=== PATIENT | female | born 1965 | race Caucasian/White ===

== ENCOUNTER 2018-01-04 18:30 | Outpatient (RCR) | payer OTHER, SELFPAY ==
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
--- NOTE | 2018-02-13 10:42 | HP.PTDCNRP_ITS ---
HP - Discharge Summary (1) - Patient Information IMRA GONZALES was seen in my office for initial evaluation on 12/23/17. The following Plan of Care was established for this patient: Initial Frequency: 3x /Week Initial Duration: 4 Weeks - Anticipated Interventions Patient/Client Instruction: Educate patient on: Benefits of Fitness Program For the Purpose of:: To improve performance and independence with ADL's Therapeutic Exercise to Include: Strength training, Endurance training, Body mechanics, Postural training, Passive ROM, Active ROM, Scapular Strength/ Stabilization For the Purpose of:: To improve muscle performance and motor function TENS: Yes Cryotherapy (ice pack, ice massage): Yes Thermo therapy (hot pack): Yes Ultrasound (thermal/non thermal): Yes For the Purpose of:: To decrease pain This patient was last seen in our office . Pertinent comments regarding their Physical therapy will appear below: Patient has not attended therapy in 4 weeks and is appropriate for d/c at this time. At this point I will be discontinuing this patient from physical therapy. I would be happy to see this patient again in the future if found appropriate by the physician. Thank you! Belem Hollins
== END 2018-01-04 19:00 | disposition home or self-care (01) ==
LOC: PT 18:30
PROVIDERS: Family Provider Preventive Medicine Occupational Medicine; PCP Preventive Medicine Occupational Medicine; Visit Provider Orthopaedic Surgery
DX: M75.42 Impingement syndrome of left shoulder (principal); M75.52 Bursitis of left shoulder; S46.012D Strain of muscle(s) and tendon(s) of the rotator cuff of left shoulder, subsequent encounter
CPT/HCPCS: 97014; 97035; 97110; 97162; G0283

== ENCOUNTER 2018-04-20 11:30 | Outpatient (RCR) | payer OTHER, SELFPAY ==
--- NOTE | 2018-03-01 12:55 | HP.PTEVAL_ITS ---
Patient's Visit Information IRMA GONZALES is a 53 year old F referred to Physical Therapy by Mega Walsh with a diagnosis of R shoulder and elbow pain. Date of Evaluation: 03/01/18 Physical Therapist: Nemesio Mitchell, PT, - Visit Plan Frequency: 3x /Week Duration: 6 Weeks Plan: R shoulder strengthening and stretching, R elbow strengthening, scap stab ex's, UBE, and HEP - Subjective Subjective: Pt reports she slipped on ice while walking into work on 11/30/17. Pt reports she has had R shoulder and elbow pain since. Pt notes she has had xrays, an MRI, and EKG to rule out pathology. PT was diagnosed with a contused R elbow and a torn rot cuff. Pt notes she has been told she needs to have surgery. Pt reports she was in a sling everyday for protection, but was told she needed to wean out of it. Pt notes occasional sleep diff secondary to pain. Pt also notes sleep diff at this time. 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 B bicepital reflex= 2/3. ROM: L shoulder flex= 150, abd= 135, ER= 60, IR WNL; R shoulder flex= 85, abd= 35, ER= 55, IR is severely limited. MMT: L shoulder is 5/5 throughout. R shoulder 2-/5 and painful with all testing. Special test: Pos empty can test indicating supraspinatus pathology. - Goals Goal 1:: Decrease R shoulder and elbow pain x 50% to aid with sleep Goal Time Frame: 4-6 Weeks Goal 2:: Increase R shoulder strength x 1 grade to aid with RTW without limitation Goal Time Frame: 4-6 Weeks Goal 3:: Increase R shoulder flex and abd ROM x 40 degrees to aid with overhead activity Goal Time Frame: 4-6 Weeks Goal 4:: I with HEP Goal Time Frame: 4-6 Weeks - Rehabilitation Potential Physical Therapy Diagnosis: R shoulder pain, weakness, and limited ROM secondary to R rot cuff tear Rehabilitation Potential: Good - Anticipated Interventions Patient/Client Instruction: Educate patient on: Condition, Plan of Care For the Purpose of:: To improve self management Therapeutic Exercise to Include: Strength training, Endurance training, Postural training, Flexibilty training, Active ROM, Scapular Strength/ Stabilization For the Purpose of:: To decrease pain, To increase ROM, To improve muscle performance and motor function Cryotherapy (ice pack, ice massage): Yes For the Purpose of:: To decrease pain Thank you for the opportunity to evaluate your patient. For Medicare and Medicare HMO plans, please review the plan of care and approve it. It will need to be FAXED BACK to us at [phone] for Medicare purposes. Please let me know if there are questions or concerns regarding this plan of care. Physician Signature: Date:
--- NOTE | 2018-04-05 09:24 | HP.PTREVAL_ITS ---
Mega Walsh, It has been my pleasure to treat IRMA GONZALES over the last 14 visits for R shoulder and elbow pain. Please see the progress note below for an update on the physical therapy plan of care! Subjective: Pt reports she is just about as good as it gets. Very little improvement. Pt to see today Objective/Function: R shoulder ROM: flex= 78, abd= 40, ER= 25, IR= minimally limited. R shoulder MMT: 3-/5 throughout. Pain ranges from 6-8/10. Pt is showing very minimal progress Plan Plan: Cont with POC pending visit today Goals Goal 1:: Decrease R shoulder and elbow pain x 50% to aid with sleep Goal Time Frame: 4-6 Weeks Goal 2:: Increase R shoulder strength x 1 grade to aid with RTW without limitation Goal Time Frame: 4-6 Weeks Goal 3:: Increase R shoulder flex and abd ROM x 40 degrees to aid with overhead activity Goal Time Frame: 4-6 Weeks Goal 4:: I with HEP Goal Time Frame: 4-6 Weeks Anticipated Interventions Patient/Client Instruction: Educate patient on: Condition, Plan of Care For the Purpose of:: To improve self management Therapeutic Exercise to Include: Strength training, Endurance training, Postural training, Flexibilty training, Active ROM, Scapular Strength/ Stabilization For the Purpose of:: To decrease pain, To increase ROM, To improve muscle performance and motor function Cryotherapy (ice pack, ice massage): Yes For the Purpose of:: To decrease pain Please do not hesitate to contact me at [phone] by phone or Fax: if you have questions or concerns regarding this new plan of care! Sincerely, Nemesio Mitchell, PT,
--- NOTE | 2018-04-20 12:14 | HP.PTDCSUM_ITS ---
HP - PT D/C Summary It has been my pleasure to treat IRMA GONZALES under orders from Mega Walsh , for the diagnosis of R shoulder and elbow pain for a total of 16 visit(s). Discharge Date: Please see the following information for a summary of their discharge status. - Subjective Subjective: Pt reports her R shoulder and elbow are still sore. Elbow pain is 5/ 10. Pt notes this is her last visit today. Pt reports she is maybe 20% better at this time. Still cant drive with her R UE - Pain R shoulder Pain Intensity (Out of 10): 6 - Overall Improvement % Improvement: 20 - Objective Objective/Function: Pt is still having sleep difficulty secondary to pain which ranges from 5-7/10. R shoulder MMT: 3-/5 throughout and painful with all testing. R shoulder ROM: flex= 82 degrees, abd= 55 degrees. Pt is working hard to increase strength and ROM, but no significant improvements up to this point. - Goals Goal 1:: Decrease R shoulder and elbow pain x 50% to aid with sleep Goal Progress: Not Progressing Goal 2:: Increase R shoulder strength x 1 grade to aid with RTW without limitation Goal Progress: Progressing Goal 3:: Increase R shoulder flex and abd ROM x 40 degrees to aid with overhead activity Goal Progress: Not Progressing Goal 4:: I with HEP Goal Progress: Goal Met - Plan Plan: Discontinue secondary to lack of improvements, RTD - D/C Information If there are questions or concerns regarding this patient's physical therapy, please feel free to call me at [phone]. Thank you for the referral of this patient. Sincerely, Nemesio Mitchell, PT,
== END 2018-04-20 19:00 | disposition home or self-care (01) ==
LOC: PT 11:30
PROVIDERS: Family Provider Preventive Medicine Occupational Medicine; PCP Preventive Medicine Occupational Medicine; Visit Provider Orthopaedic Surgery
DX: S40.011D Contusion of right shoulder, subsequent encounter (principal); S50.01XD Contusion of right elbow, subsequent encounter
CPT/HCPCS: 97035; 97110; 97162; 97530

== ENCOUNTER 2019-02-08 10:00 | Outpatient (RCR) | payer OTHER, SELFPAY ==
--- NOTE | 2018-09-20 15:26 | HP.PTEVAL ---
Patient's Visit Information IRMA GONZALES is a 53 year old F referred to Physical Therapy by TIM CRUZ with a diagnosis of R rot cuff repair. Date of Evaluation: 09/20/18 Physical Therapist: Nemesio Mitchell PT, - Visit Plan Frequency: 2-3x /Week Duration: 6 Weeks Plan: Follow protocal. CP for pain - Subjective Subjective: DOS: 08/30/18. Pt rports she fell at work about 10 months ago which resulted in a tear of her R rot cuff. Pt reports she had to wait for about 10 months to have her surgery due to the rhoades she had with workers comp. Pt reports she is R hand dom. Pt reports she is still really sore at this time. Pt has not been taking any pain meds. Sleep difficulty at this time as pt is still sleeping in a recliner. Pt reports she is not currently employed as her employer fired her at this time. 5/10 pain at rest, 10/10 when she gets stabbing pain. - Pain R shoulder Pain Intensity (Out of 10): 5 Pain Intensity Range: 10 - Objective Neuro: B UE sensation is WNL to light touch. B bicepital reflex= 2/3. Observation: Incisions healed, no signs of infection. ROM: R shoulder flex= 80, abd= 80 degrees. L shoulder is WFL. MMT: shoulder not tested. L shoulder 5/5 throughout - Goals Goal 1:: Decrease R shoulder pain x 50% to aid with sleep Goal Time Frame: 6-8 Weeks Goal 2:: Increase R shoulder ROM x 40 degrees to aid with overhead activity Goal Time Frame: 6-8 Weeks Goal 3:: Increase R shoulder strength x 1 grade to aid with IADL's Goal Time Frame: 6-8 Weeks Goal 4:: I with HEP Goal Time Frame: 6-8 Weeks - Rehabilitation Potential Physical Therapy Diagnosis: R shoulder pain, weakness, and limited ROM secondary to R rot cuff repair Rehabilitation Potential: Good - Anticipated Interventions Patient/Client Instruction: Educate patient on: Condition, Plan of Care For the Purpose of:: To improve self management Therapeutic Exercise to Include: Strength training, Endurance training, Postural training, Passive ROM, Active ROM, Scapular Strength/Stabilization For the Purpose of:: To decrease pain, To increase ROM, To improve muscle performance and motor function Cryotherapy (ice pack, ice massage): Yes For the Purpose of:: To decrease pain Thank you for the opportunity to evaluate your patient. For Medicare and Medicare HMO plans, please review the plan of care and approve it. It will need to be FAXED BACK to us at [phone] for Medicare purposes. Please let me know if there are questions or concerns regarding this plan of care. Physician Signature: Date:
--- NOTE | 2018-10-11 10:59 | HP.PTREVAL ---
TIM CRUZ, It has been my pleasure to treat IRMA GONZALES over the last 10 visits for R rot cuff repair. Please see the progress note below for an update on the physical therapy plan of care! Subjective: Pt reports she is really sore this date Objective/Function: R shoulder pain 5/10, increases to 8/10 at worst. R shoulder AROM: flex= 90, abd= 65, ER= 20, IR moderately limited. MMT: not tested this date. Pt is progressing well at this time toward Rx goals Plan Plan: Follow protocal. HP for pain (per pt request). *Update HEP next session with cane ex's in supine* Goals Goal 1:: Decrease R shoulder pain x 50% to aid with sleep Goal Time Frame: 6-8 Weeks Goal 2:: Increase R shoulder ROM x 40 degrees to aid with overhead activity Goal Time Frame: 6-8 Weeks Goal 3:: Increase R shoulder strength x 1 grade to aid with IADL's Goal Time Frame: 6-8 Weeks Goal 4:: I with HEP Goal Time Frame: 6-8 Weeks Anticipated Interventions Patient/Client Instruction: Educate patient on: Condition, Plan of Care For the Purpose of:: To improve self management Therapeutic Exercise to Include: Strength training, Endurance training, Postural training, Passive ROM, Active ROM, Scapular Strength/Stabilization For the Purpose of:: To decrease pain, To increase ROM, To improve muscle performance and motor function Cryotherapy (ice pack, ice massage): Yes For the Purpose of:: To decrease pain Please do not hesitate to contact me at [phone] by phone or if you have questions or concerns regarding this new plan of care! Sincerely, Nemesio Mitchell, PT,
--- NOTE | 2018-11-01 10:34 | HP.PTREVAL ---
TIM CRUZ, It has been my pleasure to treat IRMA GONZALES over the last 18 visits for R rot cuff repair. Please see the progress note below for an update on the physical therapy plan of care! Subjective: Pt reports she is sore today, no specific reason why Objective/Function: R shoulder pain ranges from 5/10 to 8/10. R shoulder AROM: flex= 110, abd= 90, ER= 30, and IR is minimally limited. R shoulder strength is rated at 3-/5 as she can not lift her R UE in full ROM over head Plan Plan: Attempt to get 12 more PT visits approved as skilled PT is still necessary for strength and ROM of the R shoulder Goals Goal 1:: Decrease R shoulder pain x 50% to aid with sleep Goal Time Frame: 6-8 Weeks Goal 2:: Increase R shoulder ROM x 40 degrees to aid with overhead activity Goal Time Frame: 6-8 Weeks Goal 3:: Increase R shoulder strength x 1 grade to aid with IADL's Goal Time Frame: 6-8 Weeks Goal 4:: I with HEP Goal Time Frame: 6-8 Weeks Anticipated Interventions Patient/Client Instruction: Educate patient on: Condition, Plan of Care For the Purpose of:: To improve self management Therapeutic Exercise to Include: Strength training, Endurance training, Postural training, Passive ROM, Active ROM, Scapular Strength/Stabilization For the Purpose of:: To decrease pain, To increase ROM, To improve muscle performance and motor function Cryotherapy (ice pack, ice massage): Yes For the Purpose of:: To decrease pain Please do not hesitate to contact me at [phone] by phone or if you have questions or concerns regarding this new plan of care! Sincerely, Nemesio Mitchell, PT, ATC
--- NOTE | 2019-02-08 10:56 | HP.PTREVAL ---
TIM CRUZ, It has been my pleasure to treat IRMA GONZALES over the last 36 visits for R rot cuff repair and elbow contusion. Please see the progress note below for an update on the physical therapy plan of care! Subjective: Pt is really sore today. Believes it may be due to the weather Objective/Function: R shoulder ROM: flex= 105, abd= 95, ER= 40, IR min limited. R elbow ROM: 0-95 degrees. R shoulder MMT: 4-/5 in available ROM. R elbow MMT: 4/5 with flex and ext Plan Plan: Hold chart open until after Dr. ma Goals Goal 1:: Decrease R shoulder pain x 50% to aid with sleep Goal Time Frame: 6-8 Weeks Goal Progress: Not Progressing Goal 2:: Increase R shoulder ROM x 40 degrees to aid with overhead activity Goal Time Frame: 6-8 Weeks Goal 3:: Increase R shoulder strength x 1 grade to aid with IADL's Goal Time Frame: 6-8 Weeks Goal 4:: I with HEP Goal Time Frame: 6-8 Weeks Anticipated Interventions Patient/Client Instruction: Educate patient on: Condition, Plan of Care For the Purpose of:: To improve self management Therapeutic Exercise to Include: Strength training, Endurance training, Postural training, Passive ROM, Active ROM, Scapular Strength/Stabilization For the Purpose of:: To decrease pain, To increase ROM, To improve muscle performance and motor function Cryotherapy (ice pack, ice massage): Yes For the Purpose of:: To decrease pain Please do not hesitate to contact me at [phone] by phone or if you have questions or concerns regarding this new plan of care! Sincerely, Nemesio Mitchell, PT, ATC
--- NOTE | 2019-03-23 15:29 | HP.PT.NRP ---
HP - Discharge Summary (1) - Patient Information IRMA GONZALES was seen in my office for initial evaluation on 09/20/18. The following Plan of Care was established for this patient: Initial Frequency: 2-3x /Week Initial Duration: 6 Weeks - Anticipated Interventions Patient/Client Instruction: Educate patient on: Condition, Plan of Care For the Purpose of:: To improve self management Therapeutic Exercise to Include: Strength training, Endurance training, Postural training, Passive ROM, Active ROM, Scapular Strength/Stabilization For the Purpose of:: To decrease pain, To increase ROM, To improve muscle performance and motor function Cryotherapy (ice pack, ice massage): Yes For the Purpose of:: To decrease pain This patient was last seen in our office . Pertinent comments regarding their Physical therapy will appear below: Pt was last treated for her R shoulder and elbow pain on the date of 02/08/19. Pt has not returned since that date, and is therefore discontinued at this time. At this point I will be discontinuing this patient from physical therapy. I would be happy to see this patient again in the future if found appropriate by the physician. Thank you! Nemesio Mitchell, PT, ATC
== END 2019-02-08 19:00 | disposition home or self-care (01) ==
LOC: PT 10:00
PROVIDERS: Family Provider Family Medicine; PCP Family Medicine
DX: Z98.890 Other specified postprocedural states (principal)
CPT/HCPCS: 97035; 97110; 97140; 97162; 97530

== ENCOUNTER 2019-06-26 08:30 | Outpatient (RCR) | payer OTHER, SELFPAY ==
--- NOTE | 2019-05-29 14:59 | HP.OTEVAL ---
Patient's Visit Information IRMA GONZALES is a 54 year old F, referred to Occupational Therapy by Chris Shepard MD, with a diagnosis of R CTS. Date of Evaluation: 05/29/19 Occupational Therapist: Anum Giron, OTR/L - Subjective Subjective: Arrived and noted is s/p R CTS release 05/08/19. Noted she no longer works due to injury. 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 She noted fell at work in parking lot on ice. She noted she landed on elbow. Last day of work was January 2018. - ADLs Dressing: Bra, Button shirt, Pants, Socks, Shoes, Earrings Fasteners: Tie shoes, Buttons, Zippers Eating: Cut food, Drink from glass Bathing: Handle washcloth & soap, Squeeze shampoo bottle Toileting: Manage clothing Grooming: stretcher leveler operator helper, Comb hair Kitchen: Chop with knife, Peel fruits & vegetables, Open jars, Open bottle caps, Lift gallon of milk, Pour from pitcher, Lift saucepan, Take dish out of oven, Load/unload observer gravity prospecting, Place dish in microwave Household: Vacuum, Sweep/mop, Laundry Yard: [place], [place], Use shovel, Use pruners Comments: gardening. Miscellaneous: Use cell phone, Start car, Open medication bottle, Handle money (change), Take things out of wallet, Carry shopping bag, Write, Use computer keyboard, Operate aerosol cans, Pump gas, Drive Comments: Increased pain in R wrista nd hand s/p CTS release. - Pain Right Wrist 4 Pain Intensity Range: 4, 7 - ROM Wrist: flexion R 0-44, L WFL ; extension R 0-15, L WFL MP: WFL PIP: WFL DIP: WFL ROM Comments: Able to make full composite fist. - Strength Conductor Orchestra: flexed R 6, L 53 lbs; extended R 9, L 50 Lateral Pinch: R 9, L 50 Tripod Pinch: R 6, L 15 Tip-to-Tip Pinch: R 5, L 12 Strength Comments: Increased pain with resistance for strength testing. - Edema Other: mild edema noted at volar carpal scar. - Sensation Thumb: R 2.83 ,L 2.44 Index: R 3.22, ,L 2.44 Middle: R 3.22, ,L 2.44 Ring: R 3.22, ,L 2.44 Little: R 3.22, ,L 2.44 Sensation Comments: notes increased numbness and tingling of R shoulder and elbow as well as hand. - Nine Hole Peg Right: 43.88 s Left: 22.18 s - In-Hand Manipulation Finger to Palm Translation: Mild - Right, Normal - Left Palm to Finger Translation: Mild - Right, Normal - Left Shift: Mild - Right, Moderate - Right, Normal - Left Rotation: Normal - Right, Mild - Right, Normal - Left - Quick DASH-Disab of Arm,Shoulder& Hand Quick DASH Score: 70.4525 - Carpal Tunnel Syndrome Total Score of Symptom & Functional Sections: 36 - Rehabilitation General Assessment: Arrived Rehabilitation Potential: Good - Anticipated Interventions Anticipated Interventions: Early Active Motion, A/AAROM/PROM, Strengthening, Edema Control, Desensitization, Modalities, Orthoses, Joint Protection/Energy Conservation, Ergonomic Education, Dynamic Sitting Balance, Fine Motor Coord/Homar, ADL Training, Caregiver Training, Home Program - Visit Plan Frequency: 2x /Week Duration: 4 Weeks TEXT: Thank you for the opportunity to evaluate your patient. For Medicare and Medicare HMO plans, please review the plan of care and approve it. It will need to be FAXED BACK to us at [phone] for Medicare purposes. Please let me know if there are questions or concerns regarding this plan of care. Physician Signature: Date:
--- NOTE | 2019-05-30 18:48 | HP.OTEVAL ---
Patient's Visit Information IRMA GONZALES is a 54 year old F, referred to Occupational Therapy by Chris Shepard MD, with a diagnosis of R CTS. Date of Evaluation: 05/29/19 Occupational Therapist: Anum Giron, OTR/L - Subjective Subjective: Arrived and noted is s/p R CTS release 05/08/19. Noted she no longer works due to injury. 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 She noted fell at work in parking lot on ice. She noted she landed on RUE with increased pain generalizing at R elbow and shoulder. Last day of work was January 2018. Recent R CTS release beginning of May. - ADLs Dressing: Bra, Button shirt, Pants, Socks, Shoes, Earrings Fasteners: Tie shoes, Buttons, Zippers Eating: Cut food, Drink from glass Bathing: Handle washcloth & soap, Squeeze shampoo bottle Toileting: Manage clothing Grooming: account adjuster, Comb hair Kitchen: Chop with knife, Peel fruits & vegetables, Open jars, Open bottle caps, Lift gallon of milk, Pour from pitcher, Lift saucepan, Take dish out of oven, Load/unload discharging machine operator, Place dish in microwave Household: Vacuum, Sweep/mop, Laundry Yard: [place], [place], Use shovel, Use pruners Comments: gardening. Miscellaneous: Use cell phone, Start car, Open medication bottle, Handle money (change), Take things out of wallet, Carry shopping bag, Write, Use computer keyboard, Operate aerosol cans, Pump gas, Drive Comments: Increased pain in R wrista nd hand s/p CTS release. - Pain Right Wrist 4 Pain Intensity Range: 4, 7 - Objective Objective/Observation: Volar carpal scar closed and healed. Mild edema over scar. General tenderness with palpation t/o UE. - ROM Wrist: flexion R 0-44, L WFL ; extension R 0-15, L WFL MP: WFL PIP: WFL DIP: WFL ROM Comments: Able to make full composite fist. - Strength Pharmacist In Charge Owner: flexed R 6, L 53 lbs; extended R 9, L 50 Lateral Pinch: R 9, L 50 Tripod Pinch: R 6, L 15 Tip-to-Tip Pinch: R 5, L 12 Strength Comments: Increased pain with resistance for strength testing. - Edema Other: mild edema noted at volar carpal scar. - Sensation Thumb: R 2.83 ,L 2.44 Index: R 3.22, ,L 2.44 Middle: R 3.22, ,L 2.44 Ring: R 3.22, ,L 2.44 Little: R 3.22, ,L 2.44 Sensation Comments: notes increased numbness and tingling of R shoulder and elbow as well as hand. - Nine Hole Peg Right: 43.88 s Left: 22.18 s - In-Hand Manipulation Finger to Palm Translation: Mild - Right, Normal - Left Palm to Finger Translation: Mild - Right, Normal - Left Shift: Mild - Right, Moderate - Right, Normal - Left Rotation: Normal - Right, Mild - Right, Normal - Left - Quick DASH-Disab of Arm,Shoulder& Hand Quick DASH Score: 70.4525 - Carpal Tunnel Syndrome Total Score of Symptom & Functional Sections: 36 - Goals Goal:: Irma to increased R datastage consultant strengthto 60% of L datastage consultant to promote increased ability to manipulate self-care and daily objects needed to return to PLOF by d/c. Goal:: Irma to increased R wrist ROM to that simlar of L hand to promote increased ROM and strength needed to return to PLOF by d/c. Goal:: Irma to have no more than 1-2/10 pain with repetitive movements 4/5 trials 80% of the time to promote reutnring to PLOF and potentially return to work by d/c. Goal:: Irma to complete daily scar massage to promote desensitizatrion of scar and area 4/5 trials 80% of the time to promote healing by d/c. Goal:: Karle to be (I) to complete appropriate ergonomics of R UE with lifiting and desk work to promote pain management and decreased risk of increase of pain or further injury 4/5 trials 80% of the time by d/c. Goal:: Irma to be (I) to return to PLOF with full use of RUE for all ADL/IADls 4/ 5trials 80% of the time to promote QOL by d/c. Goal:: Irma to be (I) to complete daily HEP to promote strength. ROM, and fx use of R hand and UE 4/ 5trials 80% of the time to by d/c. - Rehabilitation General Assessment: Arrived on this date of 05/29/19 for OT evaluation. rIma has had ongoing issue of RUE pain and discomfort for last year and half. She noted pain starting from shoulder and going to hand with recent R CTS release beginning of May. S/p R CTS release [place] exhibits decreased ROM, strength, and ability to use R hand at PLOF for ADL/IADls. Skilled OT warranted to promote returning to PLOF and increased ROM, strength, and ability to use R hand for ADL/IADLs. Rehabilitation Potential: Good - Anticipated Interventions Anticipated Interventions: Early Active Motion, A/AAROM/PROM, Strengthening, Edema Control, Desensitization, Modalities, Orthoses, Joint Protection/Energy Conservation, Ergonomic Education, Dynamic Sitting Balance, Fine Motor Coord/Homar, ADL Training, Caregiver Training, Home Program - Visit Plan Frequency: 2x /Week Duration: 4 Weeks General Plan: Irma to complete skilled OT intervention to promote regaining ROM, Strength, desensitization,a nd regaining fx use of R hand and UE for ADL/IADls by d/c. TEXT: Thank you for the opportunity to evaluate your patient. For Medicare and Medicare HMO plans, please review the plan of care and approve it. It will need to be FAXED BACK to us at [phone] for Medicare purposes. Please let me know if there are questions or concerns regarding this plan of care. Physician Signature: Date:
--- NOTE | 2019-06-26 09:25 | HP.OTREVAL ---
Chris Shepard MD, It has been my pleasure to treat IRMA GONZALES over the last 8 visits for R CTS. Please see the progress note below for an update on the occupational therapy plan of care! Subjective: Arrived 12 minutes late. Noted saw doctor again. She noted that she powerwashed car this weekend. She noted that shoulder and elbow are very sore. She noted that she will be getting another MRI for shoulder only if [employer] approved. Feels like she has progressed 65% improvement of hand and wrist. Objective/Function: Completed assessment on this date of 06/26/19: ROM: wrist: - flexion: R 0-75, L WFL. - extension: R 0-30, L WFL. - radial deviation: R 0-15, L WFL. - ulnar deviation: R 0-27, L WFL. Strength: peanut separator: R 17, L 30 lbs. lateral: R 8, L 13 lbs. tripod: R 6, L 13 lbs. Pincer: R 7, L 12 lbs. Strength measurements from previous session on 06/21/19: peanut separator R 19, L 40. lateral 5 , L 14. tripod R 7, L 15. . Sensory testing for monofilament testing: R 2nd 2.44 ,3rd 2.44,4th 2.44 ,5th 2.44 ,thumb 2.44. L 2nd 2.83 ,3rd 2.83 ,4th 2.83 ,5th 2.83 ,thumb 2.83. 9 hole pegboard test: R: 26.16 s. L: 22.83 s Plan Frequency: 2x /Week Duration: 3 Weeks - if approved by Worker's Compensation Visits in this POC: 8 Plan: Completed Quick DASH based on wrist and hand. She has progressed with strengthening from initial evaluation. OT has focused on CTS as she is s/p release and regaining strength and ROM in R hand and wrist. She continues to have pain in RUE through shoulder and elbow which she was previously treated by PT and unable to find relief. OT has provided ulnar nerve glides for cubital tunnel to decrease need for shoulder involvement. She may benefit from 1-2xweekly for 3 weeks for continued strengthening but shoulder and elbow imagining need to take priority as they are causing the most pain. She is to call with questions/concerns. Goals - Goals Goal:: Irma to increased R peanut separator strengthto 60% of L peanut separator to promote increased ability to manipulate self-care and daily objects needed to return to PLOF by d/c. Goal:: Irma to increased R wrist ROM to that simlar of L hand to promote increased ROM and strength needed to return to PLOF by d/c. Goal:: Irma to have no more than 1-2/10 pain with repetitive movements 4/5 trials 80% of the time to promote reutnring to PLOF and potentially return to work by d/c. Goal:: Irma to complete daily scar massage to promote desensitizatrion of scar and area 4/5 trials 80% of the time to promote healing by d/c. Goal:: Karle to be (I) to complete appropriate ergonomics of R UE with lifiting and desk work to promote pain management and decreased risk of increase of pain or further injury 4/5 trials 80% of the time by d/c. Goal:: Irma to be (I) to return to PLOF with full use of RUE for all ADL/IADls 4/ 5trials 80% of the time to promote QOL by d/c. Goal:: Irma to be (I) to complete daily HEP to promote strength. ROM, and fx use of R hand and UE 4/ 5trials 80% of the time to by d/c. Anticipated Interventions Anticipated Interventions: Early Active Motion, A/AAROM/PROM, Strengthening, Edema Control, Desensitization, Modalities, Orthoses, Joint Protection/Energy Conservation, Ergonomic Education, Dynamic Sitting Balance, Fine Motor Coord/Homar, ADL Training, Caregiver Training, Home Program Please do not hesitate to contact me at [phone] by phone or if you have questions or concerns regarding this new plan of care! Sincerely, Anum Giron, OTR/L
--- NOTE | 2019-08-17 14:01 | HP.OTDCNRP_ITS ---
HP - Discharge Summary - Patient Information IRMA GONZALES was seen in my office for initial evaluation on 05/29/19. The following Plan of Care was established for this patient: Initial Frequency: 2x /Week Initial Duration: 3 Weeks - if approved by Worker's Compensation Plan: Completed Quick DASH based on wrist and hand. She has progressed with strengthening from initial evaluation. OT has focused on CTS as she is s/p release and regaining strength and ROM in R hand and wrist. She continues to have pain in RUE through shoulder and elbow which she was previously treated by PT and unable to find relief. OT has provided ulnar nerve glides for cubital t unnel to decrease need for shoulder involvement. She may benefit from 1-2xweekly for 3 weeks for continued strengthening but shoulder and elbow imagining need to take priority as they are causing the most pain. She is to call with questions/concerns. - Anticipated Interventions Anticipated Interventions: Early Active Motion, A/AAROM/PROM, Strengthening, Edema Control, Desensitization, Modalities, Orthoses, Joint Protection/Energy Conservation, Ergonomic Education, Dynamic Sitting Balance, Fine Motor Coord/Homar, ADL Training, Caregiver Training, Home Program This patient was last seen in our office . Pertinent comments regarding their Occupational therapy will appear below: At this point I will be discontinuing this patient from occupational therapy. I would be happy to see this patient again in the future if found appropriate by the physician. Thank you! Anum Giron, OTR/Flavio
--- NOTE | 2019-08-17 14:01 | HP.OTDCSUM_ITS ---
HP - OT D/C Summary It has been my pleasure to treat IRMA GONZALES under orders from Chris Shepard MD, for the diagnosis of R CTS for a total of 8 visit(s). Please see the following information for a summary of their discharge status. - Overall Improvement % Improvement: 65 - Objective Objective/Function: Completed assessment on this date of 06/26/19: ROM: wrist: - flexion: R 0-75, L WFL. - extension: R 0-30, L WFL. - radial deviation: R 0- 15, L WFL. - ulnar deviation: R 0-27, L WFL. Strength: payroll tax analyst: R 17, L 30 lbs. lateral: R 8, L 13 lbs. tripod: R 6, L 13 lbs. Pincer: R 7, L 12 lbs. Strength measurements from previous session on 06/21/19: payroll tax analyst R 19, L 40. lateral 5 , L 14. tripod R 7, L 15. . Sensory testing for monofilament testing: R 2nd 2.44 ,3rd 2.44,4th 2.44 ,5th 2.44 ,thumb 2.44. L 2nd 2.83 ,3rd 2.83 ,4th 2.83 ,5th 2.83 ,thumb 2.83. 9 hole pegboard test: R: 26.16 s. L: 22.83 s - Goals Patient Goals: Regain Mobility, Regain Strength, Decrease Pain, Return to Work, Improve Fine Motor Skills, Use Hand/Wrist/Arm Normally Again, Sleep Better, Increase ROM, Be More Independent in ADLS, Decrease Sensitivity, Resume Former Household Responsibilities (Cooking,Cleaning,Yard, etc.), Resume Hobbies Goal:: Irma to increased R payroll tax analyst strengthto 60% of L payroll tax analyst to promote increased ability to manipulate self-care and daily objects needed to return to PLOF by d/c. Goal:: Irma to increased R wrist ROM to that simlar of L hand to promote increased ROM and strength needed to return to PLOF by d/c. Goal:: Irma to have no more than 1-2/10 pain with repetitive movements 4/5 trials 80% of the time to promote reutnring to PLOF and potentially return to work by d/c. Goal:: Irma to complete daily scar massage to promote desensitizatrion of scar and area 4/5 trials 80% of the time to promote healing by d/c. Goal:: Michaelle to be (I) to complete appropriate ergonomics of R UE with lifiting and desk work to promote pain management and decreased risk of increase of pain or further injury 4/5 trials 80% of the time by d/c. Goal:: Irma to be (I) to return to PLOF with full use of RUE for all ADL/IADls 4/ 5trials 80% of the time to promote QOL by d/c. Goal:: Irma to be (I) to complete daily HEP to promote strength. ROM, and fx use of R hand and UE 4/ 5trials 80% of the time to by d/c. - Plan Plan: Completed Quick DASH based on wrist and hand. She has progressed with stre ngthening from initial evaluation. OT has focused on CTS as she is s/p release and regaining strength and ROM in R hand and wrist. She continues to have pain in RUE through shoulder and elbow which she was previously treated by PT and unable to find relief. OT has provided ulnar nerve glides for cubital tunnel to decrease need for shoulder involvement. No further follow-up or C-9 has been recieved or scheduled and she will be d/c'd - D/C Information If there are questions or concerns regarding this patient's occupational therapy, please fell free to call me at [phone]. Thank you for the referral of this patient. Sincerely, ANGIE Jones/Flavio
== END 2019-06-26 19:00 | disposition home or self-care (01) ==
LOC: OT 08:30
PROVIDERS: Family Provider Family Medicine; PCP Family Medicine; Referring Provider Orthopaedic Surgery Hand Surgery; Visit Provider Orthopaedic Surgery Hand Surgery
DX: G56.01 Carpal tunnel syndrome, right upper limb (principal)
CPT/HCPCS: 97035; 97110; 97166; 97168; 97530

== ENCOUNTER 2019-10-23 14:00 | Outpatient (RCR) | payer OTHER, SELFPAY ==
--- NOTE | 2019-09-25 08:34 | HP.OTEVAL_ITS ---
Patient's Visit Information ONIEL GONZALES is a 54 year old F, referred to Occupational Therapy by Chris Shepard MD, with a diagnosis of Lateral Epicondylitis. Date of Evaluation: 09/25/19 Occupational Therapist: Anum Giron, ANGIE/Flavio - Subjective Subjective: Arrived and noted she has had MRI when she had mechanical fall at work 2017. She noted that she has not had follow up MRI since fall.She has completed rotator cuff repair in which she saw PT in clinic. She has CTS release in May in which she saw OT. She was currently referred to OT due to lateral epicondylitis symptoms. - ADLs Dressing: Bra, Overhead shirt, Button shirt, Pants, Shoes Fasteners: Tie shoes, Buttons, Snaps, [place] Eating: Cut food Bathing: Handle washcloth & soap, Wash hair, Squeeze shampoo bottle Toileting: Manage clothing Grooming: park attendant, Curling iron, Comb hair Kitchen: Chop with knife, Peel fruits & vegetables, Open jars, Open bottle caps, Lift gallon of milk, Take dish out of oven, Load/unload outpatient surgery rn Household: Vacuum, Sweep/mop, Dust, Laundry, Wash windows Yard: [place], [place], Use shovel Miscellaneous: Start car, Write, Use computer keyboard, Function in drive through window - Pain right elbow 3 Pain Intensity Range: 3, 9 - ROM Elbow: R 0-136, L 0-144 Forearm: WFL MP: WFL PIP: WFL DIP: WFL - Strength Transfer Car Operator: flexed position 2 R 25, L 49 lbs; ext position 2 R 19, L 33 lbs Lateral Pinch: R 5, L 10 lbs Tripod Pinch: R 0, L 4 lbs Tip-to-Tip Pinch: R 0, L 4 lbs - Edema Other: none noted at this time. - Sensation Sensation Comments: Denies numbness or tingling in hand but noted numbness and tingling from shoulder to elbow likely due to rotator cuff. - Nine Hole Peg Right: 33.87 s Left: 22.25 s - Quick DASH-Disab of Arm,Shoulder& Hand Quick DASH Score: 56.8175 - Tennis Elbow Tennis Elbow Score: 58 - Goals Goal:: Oniel to increased R data center engineer strength by 15-20 lbs topromote increased stability and strength of R elbow to help decrease pain and promote increased functon of RUE for increased QOL by d/c. Goal:: Oniel to be (i) to complete pain management techniques to promote ability to use R elbow and UE 4/5 trials 80% of the time by d/c. Goal:: Oniel to be (I) to complete correct body mechanics of RUE to promote increased pain management and ergonomics 4/5 trials 80% of the time by d/c. Goal:: Oniel to be (I) to return to all ADl/IALDs 4/5 trials 80% of the time to promote increase dparticpation in daily tasks as well as returning to PLOF by d/c. Goal:: Oniel to be (I) to complete daily HEP for strength with PRE and pain management 4/5 trials 80% of the time to promote increased QOL and ability to return to work by d/c. - Rehabilitation General Assessment: Oniel completed OT evaluation on this date of 09/25/19. She was referred for further treatment to right elbow secondary to lateral epicondylitis. Elbow pain is result of mechanical fall while walking into work in October of 2018. She exhibits increased tenderness with palpation, decreased strength, and increased pain with all resistive movements. She guards RUE secondary to ongoing and consistent shoulder related pain. Skilled OT recommended for 1-2x weekly for 4 weeks to promote increased functional ability to use RUE for ADL/IALDs by d/c. Rehabilitation Potential: Good - Anticipated Interventions Anticipated Interventions: A/AAROM/PROM, Strengthening, Edema Control, Scar Care, Triggerpoint Release, Modalities, Orthoses, Joint Protection/Energy Conservation, Ergonomic Education, Dynamic Sitting Balance, Fine Motor Coord/Homar, ADL Training, Education re assistive Equipment, Caregiver Training, Home Program - Visit Plan Frequency: 1-2x /Week Duration: 4 Weeks General Plan: Oniel to complete OT to promote increased pain management of R elbow, increased tissue elasticity and ROM, PRE for strength and stability, and general ability to return to PLOF for all ADl/IADls with decreased elbow pain. TEXT: Thank you for the opportunity to evaluate your patient. For Medicare and Medicare HMO plans, please review the plan of care and approve it. It will need to be FAXED BACK to us at [phone] for Medicare purposes. Please let me know if there are questions or concerns regarding this plan of care. Physician Signature: Date:
--- NOTE | 2019-10-05 11:08 | HP.OTCOM ---
OT Communication Note 10/05/[address] Chris Shepard MD Ana has been in significant pain since starting therapy. She noted trip to emergency room on Tuesday of last week due to elbow related discomfort. Therapy has not completed anything significant to evoke reaction to pain. Therapy has been completing moist heat, massage techniques to complete at home, ulnar nerve glides (cubital tunnel ulnar nerve glides as unable to tolerate true ulnar nerve glide with neck related movements), and general eccentric movements. She has increased pain with eccentric movements. These symptoms have been ongoing for close to two years as result of fall on the ice while walking into work. She has positive coronado test but also has increased tenderness at medial epicondyle. 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 OT has trailed KT tape but Ana noted she had reaction. OT recently has made ulnar nerve brace for nighttime to help decrease pain. Will trial brace to see if helpful. Ana is to purchase a elbow air cast for day use but is waiting worker's compensation approval. If pain continues to be significant with minimal movements therapy will be put on medical hold. She has follow- up with surgeon on 10/10/19. Sincerely, Anum Giron, OTR/L Contact Information
--- NOTE | 2019-10-23 14:42 | HP.OTDCSUM_ITS ---
HP - OT D/C Summary It has been my pleasure to treat ONIEL GONZALES under orders from Chris Shepard MD, for the diagnosis of Lateral Epicondylitis for a total of 8 visit(s). Please see the following information for a summary of their discharge status. - Overall Improvement % Improvement: 40 - Objective Objective/Function: Completed reassessment on this date of 10/23/19 and measurements are as follows: ROM: Elbow: R 8-108, L WFL. Strength: - grievance and appeals coordinator flexed position 2: R 33, L 53 lbs. - grievance and appeals coordinator extended position 2: R 24, L 44 lbs. - lateral R 6, L 11 lbs. - tripod R 4, L 8 lbs. - pincer R 2, L 6 lbs. Monofilament sensory testing: R 2nd 3.61, 3rd 3.22, 4th 2.83, 5th 3.22, thumb 3.22. L 2nd 3.22, 3rd 3.22, 4th 2.83, 5th 3.22, thumb 3.61. 9-hole pegboard test: R: 28. 57 s. L: 22. 53 s. Still very tender at lateral epicondyle. - Goals Patient Goals: Regain Mobility, Regain Strength, Decrease Pain, Return to Work, Decrease Swelling/Stiffness, Improve Fine Motor Skills, Use Hand/Wrist/Arm Normally Again, Sleep Better, Be More Independent in ADLS, Resume Former Household Responsibilities (Cooking,Cleaning,Yard, etc.), Resume Hobbies Goal:: Oniel to increased R grievance and appeals coordinator strength by 15-20 lbs topromote increased stability and strength of R elbow to help decrease pain and promote increased functon of RUE for increased QOL by d/c. Goal:: Oniel to be (i) to complete pain management techniques to promote ability to use R elbow and UE 4/5 trials 80% of the time by d/c. Goal:: Oniel to be (I) to complete correct body mechanics of RUE to promote increased pain management and ergonomics 4/5 trials 80% of the time by d/c. Goal:: Oniel to be (I) to return to all ADl/IALDs 4/5 trials 80% of the time to promote increase dparticpation in daily tasks as well as returning to PLOF by d/c. Goal:: Oniel to be (I) to complete daily HEP for strength with PRE and pain management 4/5 trials 80% of the time to promote increased QOL and ability to return to work by d/c. - Plan Plan: She has completed treatment within date span. Notified today was out of span and further request for coverage for today to be submitted as she has had to cancel appointment due to sickness and working on pain management tasks/scheduling. OT has started her on AAROM for R shoulder, but focus has been on R elbow. She has progressed but pain remains and sensitivity with palpation noted. She is to continue HEP and will be discharged at this time. - D/C Information If there are questions or concerns regarding this patient's occupational therapy, please fell free to call me at [phone]. Thank you for the referral of this patient. Sincerely, Anum Giron, OTR/L
== END 2019-10-23 15:26 | disposition home or self-care (01) ==
LOC: OT 14:00
PROVIDERS: Family Provider Family Medicine; PCP Family Medicine; Referring Provider Orthopaedic Surgery Hand Surgery; Visit Provider Orthopaedic Surgery Hand Surgery
DX: M77.11 Lateral epicondylitis, right elbow (principal)
CPT/HCPCS: 97035; 97110; 97140; 97166; 97168; 97530; 97760

== ENCOUNTER → 2019-10-24 15:45 | Outpatient (CLI) | payer OTHER, SELFPAY ==
[2019-10-24 18:02] LABS: ALB/GLOB Ratio 1.1 RATIO (0.9-2.4); AST(SGOT) 29 U/L (15-37); Alanine Aminotransfer ALT/SGPT 41 U/L (13-56); Albumin, Serum 3.7 g/dL (3.2-5.0); Alkaline Phosphatase 131 U/L (45-117); Anion Gap 4 (5-15); BUN 18 mg/dL (7-18); BUN/Creat Ratio 14.5 RATIO (10-20); Calcium,Total 8.5 mg/dL (8.5-10.1); Chloride 108 mmol/L (98-107); Cholesterol 194 mg/dL (200); Creatinine, Serum 1.24 mg/dL (0.55-1.02); EST Glomerular Filtration Rate 48 mL/min (>60); Est Glom Filt Rate - Afr Amer 58 mL/min (>60); Globulin 3.5 g/dL (2.2-4.2); Glucose 106 mg/dL (74-106); High Density Lipoprotein 37 mg/dL; Potassium 3.8 mmol/L (3.5-5.1); Protein, Total 7.2 g/dL (6.4-8.2); Sodium Level 141 mmol/L (136-145); Triglycerides 280 mg/dL; Very Low Density Lipoprotein 56 mg/dL (5-40)
[2019-10-24 20:43] LABS: Hemoglobin A1c 6.2 % (4.2-6.3)
== END ==
PROVIDERS: Family Provider Family Medicine; PCP Family Medicine; Referring Provider Family Medicine; Visit Provider Family Medicine
DX: R63.5 Abnormal weight gain (principal); Z13.220 Encounter for screening for lipoid disorders; R53.82 Chronic fatigue, unspecified; R73.09 Other abnormal glucose; Z13.29 Encounter for screening for other suspected endocrine disorder
CPT/HCPCS: 36415; 80053; 80061; 83036; 84443

== ENCOUNTER 2020-05-31 12:16 | Emergency (ER) | payer OTHER, SELFPAY ==
[2020-05-31 12:18] VITALS: BP 147/100; PULSE 86; PULSE 88; RESP 16; TEMP 36.6; O2SAT 98; BMI 30.4
--- NOTE | 2020-05-31 12:38 | ED.DCSUM_ITS ---
- ER Visit Summary Date of Service: 05/31/20 Chief Complaint: Cat bite History of Present Illness: The patient is a 55 F who presents with cat bite to her right hand that occurred last night. Patient states she was bitten by her own cat last night. Patient states that they had to put her cat down last night and she was bitten on her right hand. Patient states the pain and swelling became worse today. Patient also admits to some increased redness. Patient admits to some tingling in her right thumb but denies any weakness. Patient denies any fevers or chills. Patient denies any discharge or drainage. Physical Examination: Vital signs are stable. Patient is afebrile. Patient is in no acute distress. Skin is warm and dry. There are 2 puncture wounds on the right hand over the first metacarpal, one on the thenar eminence and one on the dorsal aspect. There is tenderness around these wounds. There is some erythema around the wound and extending on the volar aspect of the right wrist. There is no discharge or drainage. There is no fluctuance. Sensation was intact to light touch in all digits. Capillary refill was less than 2 seconds in all digits. Test Results: CBC and basic metabolic profile were obtained and were within normal limits. X-rays of the right hand were obtained. There is no acute process. There is some soft tissue swelling. This was interpreted by myself. Emergency Department Course and Treatment: Patient was given a dose of Unasyn here. Patient was feeling nauseated on reevaluation. Patient was given a dose of Zofran. Patient was instructed to ice and elevate the right hand. Patient was given prescriptions for Augmentin and Zofran. Patient was also given a prescription for Diflucan to take because she states that Augmentin causes her to get a yeast infection. Patient was instructed to follow-up with her primary care physician in 5 to 7 days. Patient was instructed return if worse in any way. Patient understood and was agreeable with the plan. All questions were answered. Disposition: Discharge home Impression: 1. Cat bite right hand 2. Cellulitis This note was generated with [employer] software. It may contain incorrect words, spelling, and punctuation that were not noted in review of the chart prior to signing ED Disposition - Plan for ED Patient: Disposition: Home or Assisted Living Diagnosis: Cat bite of right hand, Cellulitis Instructions: ED Bite Cat Prescriptions: Amox/Clavulanate Tablet [Augmentin Tablet] 875 mg PO Q12H #20 tab Transmission Status: Received by [id number] Fluconazole [Diflucan] 150 mg PO X1 #1 tab Transmission Status: Received by [id number] Ondansetron [Zofran Odt] 4 mg PO Q8H PRN PRN #10 tab PRN Reason: Nausea Transmission Status: Received by [id number] Referrals: Debbie Benavides DO [Primary Care Provider] - 3-5 Days
--- NOTE | 2020-05-31 13:05 | RAD_ITS ---
STUDY: X-RAY - RIGHT HAND REASON FOR EXAM: Female, 55 years old. cat bite to hand last night, near thumb, red and swollen, patient also states she had carpal tunnel surgery in April TECHNIQUE: 3 view(s) of the hand. COMPARISON: None. FINDINGS: Normal radiocarpal articulation. Normal distal radioulnar joint. Normal visualized carpal bones. Normal carpal articulations Normal carpometacarpal articulation of the thumb. Normal second through fifth carpometacarpal joints. Normal metacarpi. Normal metacarpophalangeal joint of the thumb. Normal interphalangeal joint of the thumb. Normal proximal and distal phalanges of the thumb. Normal metacarpophalangeal joints of the second through fifth fingers. Normal proximal and distal interphalangeal joints of the second through fifth fingers. Normal phalanges of the second through fifth fingers. The soft tissue structures are unremarkable. There is no radiopaque foreign body. There is no acute fracture. RAD/Hand Min 3 Views IMPRESSION: Normal x-ray examination of the hand. Electronically Signed: Edy Barillas MD at 15:49 EDT , Service support ,
[2020-05-31 13:32] LABS: Absolute Lymphocyte Count 1.32 X10^3/uL (0.83-4.51); Absolute Neutrophil Count 5.3 X10^3/uL (2.0-7.7); Basophil# 0.04 X10^3/uL; Basophil% 0.5 % (0-1); Eosinophil# 0.12 X10^3/uL; Eosinophils% 1.6 % (0-5); Hematocrit 39.5 % (37-47); Hemoglobin 12.9 g/dL (12.0-15.0); Lymphocyte # 1.32 X10^3/ul (4.0); Mean Corp Hgb Conc 32.7 g/dL (32-36); Mean Platelet Vol. 11.1 fl (6.2-12.0); Monocyte# 0.49 X10^3/uL; Monocyte% 6.7 % (0-10); NRBC Flagged by Analyzer 0 % (0-5); Neutrophil # 5.34 X10^3/uL (2.7-7.7); Neutrophil % 73.1 % (47-70); Platelet Count 211 K/mm3 (150-450); RBC Distribution Width CV 11.6 % (11.6-14.6); RBC Distribution Width SD 40.5 fl (35.1-43.9); Red Blood Count 4.16 M/mm3 (4.2-5.4); White Blood Count 7.3 K/mm3 (4.4-11.0)
[2020-05-31 13:50] LABS: Anion Gap 3 (5-15); BUN 17 mg/dL (7-18); Calcium,Total 9.1 mg/dL (8.5-10.1); Chloride 110 mmol/L (98-107); Creatinine, Serum 1.06 mg/dL (0.55-1.02); EST Glomerular Filtration Rate 57 mL/min (>60); Est Glom Filt Rate - Afr Amer 69 mL/min (>60); Estimated Creatinine Clearance 52.39 ml/min; Glucose 106 mg/dL (74-106); Potassium 3.9 mmol/L (3.5-5.1); Sodium Level 142 mmol/L (136-145)
[2020-05-31] MEDS: Ondansetron 4 MG/2 ML Vial IV (15:55)
[2020-05-31 15:56] VITALS: BP 145/85; PULSE 81; RESP 16; O2SAT 100
== END 2020-05-31 16:12 | disposition home or self-care (01) ==
PROVIDERS: Emergency Provider Emergency Medicine; PCP Family Medicine
DX: S61.451A Open bite of right hand, initial encounter (principal); L03.113 Cellulitis of right upper limb; K21.9 Gastro-esophageal reflux disease without esophagitis; F41.9 Anxiety disorder, unspecified; F90.9 Attention-deficit hyperactivity disorder, unspecified type; Z79.899 Other long term (current) drug therapy; W55.01XA Bitten by cat, initial encounter; Y93.89 Activity, other specified; Y92.099 Unspecified place in other non-institutional residence as the place of occurrence of the external cause; Y99.8 Other external cause status
CPT/HCPCS: 73130; 80048; 85025; 96365; 96366; 96375; 99285; J7040; A4216; J0295; J2405

== ENCOUNTER → 2020-06-26 | Outpatient (CLI) | payer OTHER, SELFPAY ==
[2020-05-31 12:18] VITALS: BMI 30.4
--- NOTE | 2020-06-26 10:41 | BI_ITS ---
MAMMOGRAPHY - BILATERAL SCREENING 3-D TOMOSYNTHESIS REASON FOR EXAM: Female, 55 years old. Routine screening PERTINENT HISTORY: BILAT SCREENING - PREV 2017 and amp;amp; 2013 FROM [facility] - NO FAM HX - NO PREV SURG''S. TECHNIQUE: 2-D mammograms and 3-D Tomosynthesis of the breast (s) were performed. CAD was performed. COMPARISON: 2017 FINDINGS: The breast composition is composed of scattered fibroglandular density. Scattered benign calcifications are seen. No dense spiculated masses or suspicious microcalcifications are identified. No architectural distortion is identified. There is no skin thickening or retraction. There has been no significant change since the prior study. BI/SCREEN MAMM (CAD) W/MADDI BILAT IMPRESSION: No mammographic signs of malignancy. Routine yearly mammograms recommended. ASSESSMENT CATEGORY: BIRADS Category 2: Benign. A letter regarding these results will be sent to the patient by the facility within 30 days. FOLLOW UP RECOMMENDATION: Yearly follow up mammogram recommended. (A) Approximately 10% of breast cancers are not detected by mammography. A normal mammogram should not delay biopsy of a clinically suspicious abnormality. Electronically Signed: Samuel Valdez MD at 15:11 EDT , Service support ,
== END | disposition home or self-care (01) ==
LOC: OPBI 10:40
PROVIDERS: PCP Family Medicine; Referring Provider Family Medicine; Visit Provider Family Medicine
DX: Z12.31 Encounter for screening mammogram for malignant neoplasm of breast (principal)
CPT/HCPCS: 77063; 77067

== ENCOUNTER → 2020-10-28 09:47 | Outpatient (CLI) | payer OTHER, SELFPAY ==
[2020-10-28 10:36] LABS: Hemoglobin A1c 5.6 % (3.8-5.6)
[2020-10-28 10:59] LABS: ALB/GLOB Ratio 1.1 RATIO (0.9-2.4); AST(SGOT) 36 U/L (15-37); Alanine Aminotransfer ALT/SGPT 66 U/L (13-56); Albumin, Serum 3.5 g/dL (3.2-5.0); Alkaline Phosphatase 119 U/L (45-117); Anion Gap 3 (5-15); BUN 22 mg/dL (7-18); BUN/Creat Ratio 20.2 RATIO (10-20); Calcium,Total 8.6 mg/dL (8.5-10.1); Chloride 110 mmol/L (98-107); Cholesterol 185 mg/dL (200); Creatinine, Serum 1.09 mg/dL (0.55-1.02); EST Glomerular Filtration Rate 55 mL/min (>60); Est Glom Filt Rate - Afr Amer 67 mL/min (>60); Globulin 3.2 g/dL (2.2-4.2); Glucose 93 mg/dL (74-106); High Density Lipoprotein 51 mg/dL; Potassium 4.3 mmol/L (3.5-5.1); Protein, Total 6.7 g/dL (6.4-8.2); Sodium Level 142 mmol/L (136-145); Thyroid Stim Hormone (TSH) 2.77 uIU/mL (0.358-3.74); Triglycerides 80 mg/dL; Very Low Density Lipoprotein 16 mg/dL (5-40)
== END ==
PROVIDERS: PCP Family Medicine; Referring Provider Family Medicine; Visit Provider Family Medicine
DX: R63.5 Abnormal weight gain (principal); R53.82 Chronic fatigue, unspecified; R73.09 Other abnormal glucose; Z13.29 Encounter for screening for other suspected endocrine disorder; Z13.220 Encounter for screening for lipoid disorders
CPT/HCPCS: 36415; 80053; 80061; 83036; 84443

== ENCOUNTER → 2021-05-21 13:25 | Outpatient (CLI) | payer OTHER, SELFPAY ==
[2021-05-21 15:05] LABS: Amphetamine Urine VISTA POSITIVE (<1000 ng/mL); Barbiturate Urine VISTA NEGATIVE (< 200 ng/mL); Benzodiazepine Urine VISTA NEGATIVE (< 200 ng/mL); Cocaine Urine VISTA NEGATIVE (< 300 ng/mL); Ecstacy Urine VISTA POSITIVE (< 500 ng/mL); Methadone Urine VISTA NEGATIVE (< 300 ng/mL); PCP Urine VISTA NEGATIVE (< 25 ng/mL); THC Urine VISTA NEGATIVE (< 50 ng/mL); Vista UDS pH Range 5
== END ==
PROVIDERS: PCP Family Medicine; Referring Provider Anesthesiology Pain Medicine; Visit Provider Anesthesiology Pain Medicine
DX: M75.41 Impingement syndrome of right shoulder (principal); M77.11 Lateral epicondylitis, right elbow; M77.12 Lateral epicondylitis, left elbow; F11.20 Opioid dependence, uncomplicated; S40.011A Contusion of right shoulder, initial encounter; S46.001A Unspecified injury of muscle(s) and tendon(s) of the rotator cuff of right shoulder, initial encounter; S50.01XA Contusion of right elbow, initial encounter
CPT/HCPCS: 80307; 97140

== ENCOUNTER → 2021-09-22 14:42 | Outpatient (CLI) | payer OTHER, SELFPAY ==
[2021-09-22 16:30] LABS: Amphetamine Urine VISTA NEGATIVE (<1000 ng/mL); Barbiturate Urine VISTA NEGATIVE (< 200 ng/mL); Benzodiazepine Urine VISTA POSITIVE (< 200 ng/mL); Cocaine Urine VISTA NEGATIVE (< 300 ng/mL); Ecstacy Urine VISTA NEGATIVE (< 500 ng/mL); Methadone Urine VISTA NEGATIVE (< 300 ng/mL); PCP Urine VISTA NEGATIVE (< 25 ng/mL); THC Urine VISTA NEGATIVE (< 50 ng/mL)
[2021-09-22 16:31] LABS: Vista UDS pH Range 6
== END ==
PROVIDERS: PCP Family Medicine; Visit Provider Anesthesiology Pain Medicine
DX: M75.41 Impingement syndrome of right shoulder (principal); M77.11 Lateral epicondylitis, right elbow; S40.011A Contusion of right shoulder, initial encounter; S50.01XA Contusion of right elbow, initial encounter; S46.011A Strain of muscle(s) and tendon(s) of the rotator cuff of right shoulder, initial encounter
CPT/HCPCS: 36415; 80307

== ENCOUNTER 2021-12-04 09:00 | Outpatient (RCR) | payer OTHER, SELFPAY ==
--- NOTE | 2021-05-04 11:32 | HP.PTEVAL_ITS ---
Patient's Visit Information IRMA GONZALES is a 56 year old F referred to Physical Therapy by RUCHI CM with a diagnosis of R elbow extensor tendon release. Date of Evaluation: 05/04/21 Physical Therapist: Nemesio Mitchell, PT, ATC - Visit Plan Frequency: 2x /Week Duration: 6 Weeks Plan: R elbow and wrist stretching, strengthening, UBE, and HEP. CP for pain - Subjective DOS: 04/27/21. Pt reports she has had R elbow pain since November of 2017 when she fell at work. Pt notes she has had 5 surgeries since that time: 2 shoulder surgeries, 1 carpal tunnel release, then 2 elbow surgeries. Pt notes she hope this surgery will be her last so she can return to work soon. Pt reports she is still in quite a bit of pain at this time. Pt notes she is limited with all IADL's and ADL's as a result. Pt reports no R UE tingling or numbness at this time. Pt notes she has significant sleep difficulty secondary to pain. Pt is R hand dominant. 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 5/10 pain in R elbow at rest, 7/10 pain at worst over the past couple days. - Pain R elbow Pain Intensity (Out of 10): 5 Pain Intensity Range: 7 - Objective Neuro: B UE sensation is WNL to light touch. B bicepital reflex= 2/3. Observation: Incision still healing. No obvious signs of infection. ROM: L wris t ext= 55, flex= 75 degrees; R wrist flex= 0, ext= 10 degrees. MMT: L wrist flex and ext= 5/5 throughout, R wrist flex and ext 1/5. Girth at radial head: R elbow 31 cm, L elbow 29 cm - Goals Goal 1:: Decrease R elbow pain x 50% to aid with sleep Goal Time Frame: 4-6 Weeks Goal 2:: Increase R wrist flex and ext ROM x 30 degrees to aid with IADL's Goal Time Frame: 4-6 Weeks Goal 3:: Increase R wrist strength x 2 grades to aid with RTW without limitation Goal Time Frame: 4-6 Weeks Goal 4:: I with HEP Goal Time Frame: 4-6 Weeks - Rehabilitation Potential Physical Therapy Diagnosis: Pr has R elbow pain, weakness, and limited ROM secondary to R extensor tendon release Rehabilitation Potential: Good - Anticipated Interventions Patient/Client Instruction: Educate patient on: Condition, Plan of Care For the Purpose of:: To improve self management Therapeutic Exercise to Include: Strength training, Endurance training, Flexibilty training, Passive ROM, Active ROM For the Purpose of:: To decrease pain, To increase ROM, To improve muscle performance and motor function Cryotherapy (ice pack, ice massage): Yes For the Purpose of:: To decrease pain Thank you for the opportunity to evaluate your patient. For Medicare and Medicare HMO plans, please review the plan of care and approve it. It will need to be FAXED BACK to us at [phone] for Medicare purposes. For Medicare only, by signing this I certify the plan of care. Please let me know if there are questions or concerns regarding this plan of care. Physician Signature: Date:
--- NOTE | 2021-06-11 11:59 | HP.PTREVAL ---
RUCHI CM, It has been my pleasure to treat IRMA GONZALES over the last 12 visits for R elbow extensor tendon release 04/27/21. Please see the progress note below for an update on the physical therapy plan of care! Subjective: Pt reports she is sore today Objective/Function: R elbow pain 02/14. R wrist ROM: flex= 65, ext= 13. R wrist MMT: 2-/5 with flex and ext. Pt is progressing well toward Rx goals but needs further skilled therapy for strength and ROM Plan Plan: Attempt to get 12 more visits to focus on strength and ROM of R wrist and elbow Balance/Gait/Functional tests - Balance/Special Test Scores Quick DASH Score: 54.5450 Goals Goal 1:: Decrease R elbow pain x 50% to aid with sleep Goal Time Frame: 4-6 Weeks Goal Progress: Progressing Goal 2:: Increase R wrist flex and ext ROM x 30 degrees to aid with IADL's Goal Time Frame: 4-6 Weeks Goal Progress: Progressing Goal 3:: Increase R wrist strength x 2 grades to aid with RTW without limitation Goal Time Frame: 4-6 Weeks Goal Progress: Progressing Goal 4:: I with HEP Goal Time Frame: 4-6 Weeks Goal Progress: Progressing Anticipated Interventions Patient/Client Instruction: Educate patient on: Condition, Plan of Care For the Purpose of:: To improve self management Therapeutic Exercise to Include: Strength training, Endurance training, Flexibilty training, Passive ROM, Active ROM For the Purpose of:: To decrease pain, To increase ROM, To improve muscle performance and motor function Cryotherapy (ice pack, ice massage): Yes For the Purpose of:: To decrease pain Please do not hesitate to contact me at [phone] by phone or if you have questions or concerns regarding this new plan of care! Sincerely, Nemesio Mitchell, PT, ATC
--- NOTE | 2021-08-24 10:22 | HP.PTREVAL ---
RUCHI CM, It has been my pleasure to treat IRMA GONZALSE over the last 30 visits for R elbow extensor tendon release 04/27/21. Please see the progress note below for an update on the physical therapy plan of care! Subjective: I feel like I am ready to continue on my own Objective/Function: R elbow pain is 4/10. Pt still has sleep difficulty secondary to pain. R wrist ROM: flex= 55, ext= 30. R wrist MMT: flex= 4/5, ext= 4-/5. Pt is progressing well but still lacks functional strength and ROM in R wrist and elbow Plan Plan: Attempt to get 8 more visits approved to focus on strengthening and ROM of R wrist and elbow Balance/Gait/Functional tests - Balance/Special Test Scores Quick DASH Score: 45.4525 Goals Goal 1:: Decrease R elbow pain x 50% to aid with sleep Goal Time Frame: 4-6 Weeks Goal Progress: Progressing Goal 2:: Increase R wrist flex and ext ROM x 30 degrees to aid with IADL's Goal Time Frame: 4-6 Weeks Goal Progress: Progressing Goal 3:: Increase R wrist strength x 2 grades to aid with RTW without limitation Goal Time Frame: 4-6 Weeks Goal Progress: Progressing Goal 4:: I with HEP Goal Time Frame: 4-6 Weeks Goal Progress: Goal Met Anticipated Interventions Patient/Client Instruction: Educate patient on: Condition, Plan of Care For the Purpose of:: To improve self management Therapeutic Exercise to Include: Strength training, Endurance training, Flexibilty training, Passive ROM, Active ROM For the Purpose of:: To decrease pain, To increase ROM, To improve muscle performance and motor function Cryotherapy (ice pack, ice massage): Yes For the Purpose of:: To decrease pain Please do not hesitate to contact me at [phone] by phone or if you have questions or concerns regarding this new plan of care! Sincerely, Nemesio Mitchell, PT, ATC
--- NOTE | 2021-11-05 12:08 | HP.PTREVAL_ITS ---
RUCHI CM, It has been my pleasure to treat IRMA GONZALES over the last 39 visits for R elbow extensor tendon release 04/27/21. Please see the progress note below for an update on the physical therapy plan of care! Subjective: I am still really sore Objective/Function: R elbow pain 5/10 currently, still increases to 9/10 at wo rst. R wrist ROM: flex= 60, ext= 15. MMT: R wrist ext= 4-/5, flex= 4/5. Pt has made significant gains toward Rx goals but still has difficulty sleeping at night and is limited with most IADL's Plan Plan: Attempt to get 12 more visits approved to focus on ROM, strength, and pain reduction Balance/Gait/Functional tests - Balance/Special Test Scores Quick DASH Score: 45.4525 Goals Goal 1:: Decrease R elbow pain x 50% to aid with sleep Goal Time Frame: 4-6 Weeks Goal Progress: Progressing Goal 2:: Increase R wrist flex and ext ROM x 30 degrees to aid with IADL's Goal Time Frame: 4-6 Weeks Goal Progress: Progressing Goal 3:: Increase R wrist strength x 2 grades to aid with RTW without limitation Goal Time Frame: 4-6 Weeks Goal Progress: Progressing Goal 4:: I with HEP Goal Time Frame: 4-6 Weeks Goal Progress: Goal Met Anticipated Interventions Patient/Client Instruction: Educate patient on: Condition, Plan of Care For the Purpose of:: To improve self management Therapeutic Exercise to Include: Strength training, Endurance training, Flexibilty training, Passive ROM, Active ROM For the Purpose of:: To decrease pain, To increase ROM, To improve muscle performance and motor function Cryotherapy (ice pack, ice massage): Yes For the Purpose of:: To decrease pain Please do not hesitate to contact me at [phone] by phone or if you have questions or concerns regarding this new plan of care! Sincerely, Nemesio Mitchell, PT, ATC
== END 2021-12-04 19:00 | disposition home or self-care (01) ==
LOC: PT 09:00
PROVIDERS: PCP Family Medicine
DX: M77.11 Lateral epicondylitis, right elbow (principal); M77.12 Lateral epicondylitis, left elbow
CPT/HCPCS: 97035; 97110; 97140; 97161; 97164; 97530

== ENCOUNTER 2022-01-12 07:32 | Outpatient (RCR) | payer OTHER, SELFPAY ==
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
--- NOTE | 2022-01-20 12:20 | HP.OTFCE.D ---
FCE D/C Summary - Discharge IRMA GONZALES was seen for a one time visit for an FCE on 01/12/22 and is discharged.
== END 2022-01-12 19:00 | disposition home or self-care (01) ==
LOC: OT 07:32
PROVIDERS: PCP Family Medicine
DX: M17.11 Unilateral primary osteoarthritis, right knee (principal)
CPT/HCPCS: 97750